=== PATIENT | male | born 1950 | race Caucasian/White ===

== ENCOUNTER → 2024-10-17 09:22 | Outpatient (BNVA) | payer MEDICARE, SELFPAY | PROVIDERS: Visit Provider Orthopaedic Surgery | DX: M25.531 Pain in right wrist (principal); S69.81XA Other specified injuries of right wrist, hand and finger(s), initial encounter; W11.XXXA Fall on and from ladder, initial encounter; D17.21 Benign lipomatous neoplasm of skin and subcutaneous tissue of right arm | CPT/HCPCS: 73110; 99204 ==

== ENCOUNTER 2024-10-17 10:52 | Outpatient (CLI) | payer MEDICARE, SELFPAY | END 2024-10-17 10:53 | disposition home or self-care (01) | LOC: SPT 10:53 | PROVIDERS: Visit Provider Orthopaedic Surgery | DX: Z46.89 Encounter for fitting and adjustment of other specified devices (principal); M25.531 Pain in right wrist | CPT/HCPCS: L3809 ==

== ENCOUNTER 2024-10-25 09:49 | Outpatient (CLI) | payer MEDICARE, SELFPAY ==
--- NOTE | 2024-10-25 10:00 | CT_ITS ---
WS: [id number] CT RIGHT WRIST, NONCONTRAST HISTORY: RIGHT wrist pain Technique: All CT scans at [facility] use at least one of these dose optimization techniques: automated exposure control; mA and/or kV adjustment per patient size (includes targeted exams where dose is matched to clinical indication); or iterative reconstruction. DLP: 95.59 mGy.cm COMPARISON: Radiograph 10/17/2024 and 10/15/2024 Normal alignment at the radial ulnar joint. Small avulsion fractures along the dorsal distal radius. The fractures extend into the articular surface. There are several small osseous fragments which are not displaced. Additional nondisplaced fracture through the waist of the scaphoid without displacement. There is a few small bony fragments extending along the medial fracture site. There is no displacement. No additional fractures are evident. Normal carpal metacarpal alignment. Carpal rows are appropriate. No widening of the scapholunate interval. CT/CT wrist RT wo con* [id number] IMPRESSION: 1. Several small avulsion fractures along the dorsal surface of the distal rad ius without displacement. 2. Nondisplaced acute, nonhealed scaphoid fracture through the waist.
== END 2024-10-25 09:50 | disposition home or self-care (01) ==
LOC: RAD 09:52
PROVIDERS: Visit Provider Orthopaedic Surgery
DX: S52.591A Other fractures of lower end of right radius, initial encounter for closed fracture (principal); S62.001A Unspecified fracture of navicular [scaphoid] bone of right wrist, initial encounter for closed fracture; X58.XXXA Exposure to other specified factors, initial encounter; R93.6 Abnormal findings on diagnostic imaging of limbs
CPT/HCPCS: 73200

== ENCOUNTER → 2024-11-04 13:19 | Outpatient (BNVA) | payer MEDICARE, SELFPAY | PROVIDERS: Visit Provider Orthopaedic Surgery | DX: S62.024D Nondisplaced fracture of middle third of navicular [scaphoid] bone of right wrist, subsequent encounter for fracture with routine healing (principal); X58.XXXD Exposure to other specified factors, subsequent encounter | CPT/HCPCS: 29075; 99213 ==

== ENCOUNTER → 2024-11-25 10:00 | Outpatient (BNVA) | payer MEDICARE, SELFPAY | PROVIDERS: Visit Provider Orthopaedic Surgery | DX: S62.024D Nondisplaced fracture of middle third of navicular [scaphoid] bone of right wrist, subsequent encounter for fracture with routine healing (principal); X58.XXXD Exposure to other specified factors, subsequent encounter | CPT/HCPCS: 29075; 73110; 99213 ==

== ENCOUNTER → 2024-12-30 08:03 | Outpatient (BNVA) | payer MEDICARE, SELFPAY | PROVIDERS: Visit Provider Orthopaedic Surgery | DX: S62.024D Nondisplaced fracture of middle third of navicular [scaphoid] bone of right wrist, subsequent encounter for fracture with routine healing (principal); X58.XXXD Exposure to other specified factors, subsequent encounter | CPT/HCPCS: 73110; 99024; 99213 ==

== ENCOUNTER → 2025-01-28 09:03 | Outpatient (BNVA) | payer MEDICARE, SELFPAY | PROVIDERS: Visit Provider Orthopaedic Surgery | DX: S62.024D Nondisplaced fracture of middle third of navicular [scaphoid] bone of right wrist, subsequent encounter for fracture with routine healing (principal); X58.XXXD Exposure to other specified factors, subsequent encounter | CPT/HCPCS: 73110; 99213 ==